=== PATIENT | male | born 1995 | race African-American/Black ===

== ENCOUNTER 2020-06-15 21:44 | Emergency (ER) | payer BC, OTHER ==
[~2020-06-15] VITALS: Ht 180.3 cm; Wt 86.2 kg
[2020-06-15 23:12] LABS: Urine Amorphous Crystal FEW /hpf (None Seen); Urine Bacteria FEW /hpf (None Seen); Urine Blood Negative /uL (Negative); Urine Mucus FEW (None Seen); Urine Specific Gravity 1.029 (1.001-1.035); Urine WBC 105 /hpf (0 - 3)
[2020-06-16 00:11] LABS: Basophils # (auto) 0.1 10 ^3/uL (0-0.2); Basophils % (auto) 0.7 % (0.0-2.0); Eosinophils # (auto) 0.2 10 ^3/uL (0-0.8); Eosinophils % (auto) 1.9 % (0.0-7.0); Hematocrit 41.1 % (41.0-53.0); Hemoglobin 13.6 g/dL (13.5-17.5); Lymphocytes # (auto) 2.8 10 ^3/uL (0.4-5.4); Lymphocytes % (auto) 32.1 % (10.0-50.0); Mean Corpuscular Hemoglobin 29.3 pg (28.0-32.0); Monocytes # (auto) 0.6 10 ^3/uL (0-1.3); Monocytes % (auto) 6.5 % (0.0-12.0); Neutrophils # (auto) 5.1 10 ^3/uL (1.6-8.6); Neutrophils % (auto) 58.8 % (37.0-80.0); Nucleated Red Blood Cells % 0.1 %; Platelet Count (auto) 275 10^3/uL (140-450); Red Blood Cells 4.62 10^6/uL (4.5-5.90); Red Cell Distribution Width 13.5 % (11.8-14.3); White Blood Cell 8.6 10^3/uL (4.4-10.8)
[2020-06-16 00:31] LABS: BUN/Creatinine Ratio 14.2; Calcium 8.7 mg/dL (8.5-10.1); Magnesium 2.3 mg/dL (1.6-2.6); Potassium 4.1 mmol/L (3.5-5.1)
[2020-06-16 00:34] LABS: Bilirubin, Total 0.4 mg/dL (0.2-1.0); Total Protein 7.2 g/dL (6.4-8.2)
[2020-06-16] MEDS ORDERED: AZITHROMYCIN 250 MG TAB PO ONE (01:15)
[2020-06-16] MEDS ORDERED: cefTRIAXone SOD 1,000 MG VL IM ONE (01:15)
[2020-06-16 01:22] VITALS: BP 112/85
== END 2020-06-16 01:37 | disposition home or self-care (01) ==
LOC: ER 21:44
DX: A64 Unspecified sexually transmitted disease (principal)
CPT/HCPCS: 36415; 80053; 81001; 82150; 83690; 83735; 85025; 96372; 99283; J0696

== ENCOUNTER 2020-06-22 09:13 | Emergency (ER) | payer BC ==
[~2020-06-22] VITALS: Ht 180.3 cm; Wt 84.8 kg
[2020-06-22 10:39] VITALS: BP 101/72
== END 2020-06-22 10:46 | disposition home or self-care (01) ==
LOC: ER 09:13
DX: G89.29 Other chronic pain (principal); M54.5 Low back pain
CPT/HCPCS: 72100